=== PATIENT | female | born 2000 | race Caucasian/White ===

== ENCOUNTER 2024-12-02 00:19 | Inpatient (IN) ==
[2024-12-02] MEDS ORDERED: ACETAMINOPHEN 325 MG TAB PO PRN (01:23)
[2024-12-02] MEDS ORDERED: LIDOCAINE 1% LOCAL 20 ML VIAL INFIL PRN (01:23)
[2024-12-02] MEDS ORDERED: OXYTOCIN 30 UNITS/NSS 30 UNITS/500 ML BAG IV PRN ×2 (01:23→12:25)
[2024-12-02] MEDS ORDERED: CALCIUM CARBONATE 500 MG CHEWABLE TAB PO PRN (01:23)
--- NOTE | 2024-12-02 01:26 | History & Physical Report ---
Date of Service December 02, 2024 Assessment & Plan (1) Normal labor: Plan admit for rom and early labor. fetus category one, uncomplicated, gbs neg. Plan expectant management. pitocin if indicated. epidural on demand. fetus category one. anticipate . History of Present Illness Chief Complaint: rom and contractions Primary Care Provider: NO PCP Patient is a 24yowf with iup at 39 1/7 who noted gush of clear fluid at 10:40 this evening. Notes no vb. Contractions have started and noted to be every 6-8 minutes. and Delivery Plans Transfer into care at 24+ weeks Brother with tricuspid issue echo ~22-24 weeks 09/21/24 @ [facility] [place]--> WNL Initial OB Labs 05/08/24 Blood Type & RH A positive Antibody Screen negative HCT/HGB 40.8/13.4 Platelets 246 Hep C IgG 13yrs+ Old non reactive Pap Test Chlamydia not detected Gonorrhea not detected Rubella immune RPR non reactive Urine Culture/Screen mixed genital ryne isolated HBsAg non reactive HIV non reactive MCV Ultrasound gbs neg Allergies Allergy/AdvReac Type Severity Reaction Status Date / Time No Known Allergies Allergy Verified 11/29/24 11:48 Home Medications Medication Instructions Recorded Confirmed Type fluoxetine PO 08/22/24 11/29/24 History 21-iron fu-folic acid PO 08/22/24 11/29/24 History [ Complete] breast pump #1 ea 09/25/24 11/29/24 Rx famotidine [Pepcid] PO 11/29/24 11/29/24 History Patient History Medical History Anxiety Duct ectasia of breast Right breast Varicella vaccination Surgical History No history of previous surgery Family History Grandmother Breast cancer Denies family history of Ovarian cancer Colorectal cancer Social History Smoking Status: Never smoker Second Hand Exposure: No; Do You Dip or Chew Tobacco: No; Hx Alcohol Use: No Hx Substance Use: No Preferred Language: Turkmen Communication Ability: Effective Water Pollution Control Technician Required: No Beliefs That Will Affect Care: None marital status: marital status details: Robert Dwyer (29) [phone] Current Living Situation: Spouse Current Living Situation Comment: lives with spouse, dogs current occupational status: employed current occupation: [employer] Other Information That Helps Us Care for You: No Feels Safe at Home: Yes Safety Concerns: Feels Safe At This Time Assistive Devices: Glasses OB History g1--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 Results & Data Vital Signs (Past 12 Hours) Vital Signs Temp Pulse Resp BP 12/02/24 00:54 90 138/79 12/02/24 00:48 36.8 C 18 Coding Level of Care Code None Diagnoses Normal labor O80; Z37.9
[2024-12-02 02:11] LABS: Hematocrit (blood only) 33.7 % (37.0-47.0); Hemoglobin 11.5 g/dl (12.0-16.0); Mean Corpuscular Hemoglobin 31.3 pg (25.0-34.0); Mean Corpuscular Hgb Conc 34.1 g/dL (32.0-36.0); Mean Corpuscular Volume 91.6 fL (80.0-100.0); Mean Platelet Volume 10.5 fL (9.4-12.4); Platelet Count 258 K/uL (130-400); RDW Coefficient of Variation 12.4 % (11.5-14.5); RDW Standard Deviation 41.3 fL (36.4-46.3); Red Blood Count 3.68 M/uL (4.20-5.40); White Blood Count 8.98 K/ul (4.8-10.8)
--- NOTE | 2024-12-02 05:29 | Labor Progress Brief Note ---
Date of Service December 02, 2024 Subjective Resting in bed, notes stronger contractions. Assessment & Plan (1) Normal labor: Plan Discussed almost 7 hours since rom and no change. discussed continued expectant management vs. pitocin and she is ok with going with pitocin. Fetus reassuring. epidural on demand. Admission and Anticipated Discharge Date Admission Date: December 02, 2024 Physical Exam Physical Exam: cx--3/90/-2 efm--category one, intermittent monitoring Results & Data Vital Signs (Past 12 Hours) Vital Signs Temp Pulse Resp BP 12/02/24 04:25 20 12/02/24 04:25 36.6 C 20 12/02/24 04:24 65 108/70 12/02/24 02:30 36.7 C 12/02/24 00:54 90 138/79 12/02/24 00:48 36.8 C 18 Coding Level of Care Code None Diagnoses Normal labor O80; Z37.9
[2024-12-02] MEDS ORDERED: BUTORPHANOL TARTRATE 1 MG/ML VIAL IV STA (05:30)
[2024-12-02] MEDS: LACTATED RINGER'S 1,000 ML IV PRN (05:58)
[2024-12-02] MEDS: OXYTOCIN 30 UNITS/NSS 30 UNITS/500 ML BAG IV PRN (05:59)
--- NOTE | 2024-12-02 07:39 | Anesthesiology Consultation ---
Date of Service December 02, 2024 Assessment & Plan Chart Review Chart Review: Acceptable Risk for Surgery and Patient NOT seen in Pre Admission Testing Consults Requested none ASA ASA2 Proposed Anesthesia Anesthesia Type: Labor Epidural and CSE History Height/Weight Height: 5 ft 4 in Weight: 73.142 kg Allergies Allergy/AdvReac Type Severity Reaction Status Date / Time No Known Allergies Allergy Verified 11/29/24 11:48 Medications Home Medications Medication Instructions Recorded Confirmed Last Taken fluoxetine PO 08/22/24 11/29/24 Unknown 21-iron fu-folic acid PO 08/22/24 11/29/24 Unknown [ Complete] breast pump #1 ea 09/25/24 11/29/24 Unknown famotidine [Pepcid] PO 11/29/24 11/29/24 Unknown Active Medications Generic Name Dose Route Start Last Admin Trade Name Freq PRN Reason Stop Dose Admin Lactated Ringer's 1,000 mls @ 125 mls/hr 12/02/24 01:23 12/02/24 07:18 Lr IV 12/03/24 01:22 999 mls/hr .Q8H PRN Infusion L&D Protocol Protocol Oxytocin 30 units in 500 mls @ 4 mls/hr 12/02/24 05:27 12/02/24 07:05 Pitocin 30 Units/Nss IV 12/04/24 05:26 0.36 units/hr .Q24H PRN 6 mls/hr Labor Induction/Augmentation Titration Protocol 0.24 UNITS/HR Past Medical History Medical History Anxiety Duct ectasia of breast Right breast Varicella vaccination gerd anemia Exercise / Class Metabolic Activity II 4-5 Yardwork/Stairs/Walk up hill Past Family History Family History Grandmother Breast cancer Denies family history of Ovarian cancer Colorectal cancer Past Surgical History Surgical History No history of previous surgery Past Anesthesia History No Hx of Anesthesia Complications and No Family Hx of Anesthesia Complications History of PONV No Hx of PONV and No Hx of Motion Sickness Social History Smoking Status: Never smoker Do You Dip or Chew Tobacco: No Hx Alcohol Use: No Hx Substance Use: No Physical Exam Vital Signs Last Vital Signs Temp 36.6 C 12/02/24 04:25 Pulse 68 12/02/24 07:05 Resp 20 12/02/24 04:25 BP 117/68 12/02/24 07:05 Testing Laboratory Results 12/02/24 01:38
[2024-12-02] MEDS: LIDOCAINE 2%/EPINEPHRINE 1:200,000 20 ML PF ONE (08:35)
[2024-12-02] MEDS: fentaNYL citrate PF 100 MCG/2 ML VIAL ONE (08:35)
[2024-12-02] MEDS: BUPIVACAINE 0.25% PF 30 ML VIAL ONE (08:35)
[2024-12-02] MEDS ORDERED: NALBUPHINE HCL INJ 10 MG/ML AMP IV PRN (08:41)
[2024-12-02] MEDS ORDERED: NALOXONE HCL 0.4 MG/1 ML VIAL/CARP IV PRN (08:41)
[2024-12-02] MEDS ORDERED: diphenhydrAMINE 50 MG/ML VIAL IV PRN (08:41)
[2024-12-02] MEDS ORDERED: ONDANSETRON INJ 2 MG/ML 2 ML VIAL IV PRN (08:41)
[2024-12-02] MEDS ORDERED: SODIUM CHLORIDE 0.9% PF INJ 10 ML VIAL EPI PRN (08:41)
[2024-12-02] MEDS ORDERED: ePHEDrine sulfate 50 MG/ML AMP IV PRN (08:41)
[2024-12-02] MEDS ORDERED: PROMETHAZINE 6.25 MG/50.25 ML BAG IV PRN (08:41)
[2024-12-02] MEDS ORDERED: fentaNYL citrate PF 100 MCG/2 ML VIAL EPI PRN (08:41)
[2024-12-02] MEDS ORDERED: ROPIVACAINE 0.5% PF 5 MG/ML 20 ML VIAL EPI PRN (08:41)
[2024-12-02] MEDS ORDERED: NALOXONE HCL 1 MG in SODIUM CHLORIDE 0.9% 1,000 ML IV PRN (08:41)
[2024-12-02] MEDS ORDERED: fentANYL 2 MCG/ML BUPIVacaine 0.125%-NSS 100ML BAG EPI PRN (08:41)
[2024-12-02] MEDS ORDERED: LIDOCAINE 2% MPF LOCAL 5 ML VIAL EPI PRN (08:41)
[2024-12-02] MEDS ORDERED: BUPIVACAINE 0.25% PF 30 ML VIAL EPI PRN (08:41)
[2024-12-02] MEDS: fentANYL 2 MCG/ML BUPIVacaine 0.125%-NSS 100ML BAG ONE (08:42)
[2024-12-02] MEDS: ePHEDrine sulfate 50 MG/ML AMP ONE (09:38)
[2024-12-02] MEDS: SODIUM CHLORIDE 0.9% PF INJ 10 ML VIAL ONE (09:39)
[2024-12-02] MEDS: BUPIVACAINE 0.25% PF 30 ML VIAL EPI STA (09:40)
[2024-12-02] MEDS: fentaNYL citrate PF 100 MCG/2 ML VIAL EPI STA (09:40)
[2024-12-02] MEDS: LIDOCAINE 2%/EPINEPHRINE 1:200,000 20 ML PF EPI STA (09:40)
[2024-12-02] MEDS: SODIUM CHLORIDE 0.9% PF INJ 10 ML VIAL EPI STA (09:40)
--- NOTE | 2024-12-02 10:32 | Labor Progress Brief Note ---
Date of Service December 02, 2024 Subjective comfortable with epidural Assessment & Plan (1) Normal labor: Plan fetus category one, labor down, push n about an hour. anticipate . Admission and Anticipated Discharge Date Admission Date: December 02, 2024 Physical Exam Physical Exam: cx--ant lip/0 toco--q2min, pit at 8 efm--120s wtih mod varability, accels to 150s, occasional early Results & Data Vital Signs (Past 12 Hours) Vital Signs Temp Pulse Resp BP Pulse Ox 12/02/24 10:28 63 97 12/02/24 10:27 61 138/78 12/02/24 10:23 87 95 12/02/24 10:18 63 94 12/02/24 10:16 20 12/02/24 10:16 20 12/02/24 10:13 69 94 12/02/24 10:12 63 91/52 L 12/02/24 10:08 63 94 12/02/24 10:03 63 94 12/02/24 10:00 20 12/02/24 10:00 20 12/02/24 09:58 68 91/55 L 94 12/02/24 09:53 66 94 12/02/24 09:48 59 L 96 12/02/24 09:45 20 12/02/24 09:45 20 12/02/24 09:43 64 96 12/02/24 09:42 63 114/64 12/02/24 09:38 64 94 12/02/24 09:33 64 95 12/02/24 09:30 20 12/02/24 09:30 20 12/02/24 09:28 64 109/66 95 12/02/24 09:23 65 97 12/02/24 09:18 65 95 12/02/24 09:16 20 12/02/24 09:16 20 12/02/24 09:13 64 95 12/02/24 09:10 62 121/74 94 12/02/24 09:08 64 95 12/02/24 09:05 63 111/67 12/02/24 09:03 66 95 12/02/24 09:01 62 20 115/71 12/02/24 08:58 65 96 12/02/24 08:56 65 111/70 12/02/24 08:53 69 97 12/02/24 08:50 67 119/74 12/02/24 08:48 97 12/02/24 08:48 67 12/02/24 08:48 66 115/75 12/02/24 08:46 67 116/75 12/02/24 08:45 20 12/02/24 08:45 37.0 C 20 12/02/24 08:44 67 119/71 12/02/24 08:43 70 98 12/02/24 08:42 68 114/67 12/02/24 08:40 67 114/69 12/02/24 08:38 98 12/02/24 08:38 69 12/02/24 08:38 68 110/67 12/02/24 08:36 68 108/67 12/02/24 08:35 68 107/67 12/02/24 08:33 68 97 12/02/24 08:31 62 110/65 12/02/24 08:28 78 96 12/02/24 08:27 72 120/79 12/02/24 08:23 99 12/02/24 08:23 69 12/02/24 08:23 73 91 12/02/24 08:21 68 135/82 12/02/24 08:18 76 100 12/02/24 08:13 68 100 12/02/24 08:08 68 98 12/02/24 08:03 67 99 12/02/24 07:58 100 12/02/24 07:58 68 12/02/24 07:58 67 129/75 12/02/24 07:06 20 12/02/24 07:06 36.8 C 20 12/02/24 07:05 68 117/68 12/02/24 06:03 67 102/71 12/02/24 04:25 20 12/02/24 04:25 36.6 C 20 12/02/24 04:24 65 108/70 12/02/24 02:30 36.7 C 12/02/24 00:54 90 138/79 12/02/24 00:48 36.8 C 18 Coding Level of Care Code None Diagnoses Normal labor O80; Z37.9
--- NOTE | 2024-12-02 12:09 | Delivery Summary ---
Vaginal Delivery Summary Date of Service December 02, 2024 Vaginal Delivery Summary and 1st Degree LAC (right labial as well) Pre-operative Diagnosis: at 39 1/7 srom labor Post-operative Diagnosis: same Procedure: epidural pitocin augmentation right labial and first degree lacerations with repair QBL: 143cc Anesthesia: epidural Procedure: Lb presents to labor and delivery with srom. AFter seven hours, no cervical change and pitocin added. The patient progressed to c/c/+2. The patient pushed for less than 30 min to deliver a viable male in tariq position. The nose and mouth were bulb suctioned on the perineum and the rest o f the infant was then delivered without difficulty. The baby was vigorous. The nose and mouth were again bulb suctioned and the infant was placed in the maternal abdomen for drying and attention. Cord was clamped and cut at one minute of life. Cord blood and segment obtained. Placenta delivered spontaneous, intact with a three vessel cord. Cervix/sulci/rectum were intact. A first degree perineal laceration and right labial laceration were repaired in the normal standard fashion. Hemostasis obtained with dilute pitocin and fundal massage. Apgars were pending at time of note. Mother and baby doing well at the end of the delivery. [facility] Vaginal Delivery Charge Delivery Type Details: and 1st Degree LAC (right labial as well)
[2024-12-02] MEDS ORDERED: bisacodyL 10 MG SUPP PR PRN (12:25)
[2024-12-02] MEDS ORDERED: HYDROCORTISONE ACETATE 25 MG SUPP PR PRN (12:25)
[2024-12-02] MEDS ORDERED: oxyCODONE/ACETAMINOPHEN 5mg/325mg TAB PO PRN (12:25)
[2024-12-02] MEDS: DIPHTHER/TETAN/PERTUS Vaccine (Tdap, Adol/Adult) 0.5mL IM ONE (12:45)
--- NOTE | 2024-12-02 13:29 | Anesthesia Procedure Note ---
Date of Service December 02, 2024 Anesthesia Post Epidural Note Vital Signs Vital Signs: Temp Pulse Resp BP Pulse Ox 37.0 C 69 20 109/67 98 12/02/24 11:00 12/02/24 13:17 12/02/24 13:02 12/02/24 13:17 12/02/24 12:08 Notes Mental Status: alert / awake / arousable and participated in evaluation Nausea / Vomiting: adequately controlled Pain: adequately controlled Airway Patency, RR, SpO2: stable & adequate BP & HR: stable & adequate Hydration State: stable & adequate Neuraxial Anesthesia: was administered and sensory block is resolving Anesthetic Complications: no major complications apparent and Pt Satisfied with anesthetic care Epidural: Removed without complications and With tip intact
[2024-12-02] MEDS: BENZOCAINE 20% SPRY 85 APPLN/85 GM CAN EXT PRN (15:18)
[2024-12-02] MEDS: IBUPROFEN 600 MG TAB PO PRN (16:06)
[2024-12-02] MEDS: DOCUSATE SODIUM 100 MG CAP PO SCH (20:29)
[2024-12-02] MEDS: FLUoxetine HCL 20 MG CAP PO SCH (21:00)
[2024-12-02] MEDS: FAMOTIDINE 20 MG TAB PO ONE (21:29)
[2024-12-03 06:10] LABS: Hematocrit (blood only) 34.6 % (37.0-47.0); Hemoglobin 11.5 g/dl (12.0-16.0)
--- NOTE | 2024-12-03 06:24 | Obstetrical Progress Note ---
Date of Service December 03, 2024 Assessment & Plan (1) care and examination: Plan PPD#1 following at term. Stable. Rh+, gbs -, ri, vitals wnl Continue routine care, oob and ambulation, diet as tolerated Plan for DC: 12/04 Admission and Anticipated Discharge Date Admission Date: December 02, 2024 Supervising Physician Co-Signing Physician Notes Resident Physician Supervision Note: I interviewed and examined the patient. Discussed with Dr. Funez and agree with findings and plan as documented in the note. Any exceptions or clarifications are listed here: Doing well. Routine care. No concerns. Documented By: Chetna Saez MD, FACOG Subjective Patient is a 24 y/o female who is PPD#1 following at 39 weeks. Reports mild abd pain/cramping, well managed on analgesics Is voiding, eating, drinking, and ambulating normally Having appropriate lochia Planning for exclusive . Review of Systems Constitutional: no fever, no chills and no sweats Respiratory: no dyspnea Cardiovascular: no chest pain, no palpitations and no calf pain Gastrointestinal: no nausea and no vomiting Genitourinary: no dysuria Neurologic: no headache(s) Physical Exam Physical Exam: General: Alert, oriented. No acute distress. Cardiac: Regular rate and rhythm, no murmurs, rubs, or gallops. Respiratory: Clear to auscultation bilaterally. No increased work of breathing. Symmetrical chest rise. No respiratory distress. Abdomen: Soft, nontender, nondistended. Bowel sounds present. Uterus: Uterine fundus firm, nontender Lower extremities: No lower extremity edema or swelling. No deep calf pain. Results & Data Vital Signs (Past 12 Hours) Vital Signs Temp Pulse Resp BP Pulse Ox O2 Del Method 12/03/24 04:30 36.4 C L 63 16 124/82 100 Room Air 12/03/24 00:50 36.8 C 69 18 106/68 96 Room Air 12/02/24 20:20 36.7 C 64 18 108/56 L 98 Room Air Resident Activity Tracking Resident Involvement: Resident Care Provided Care Provided: Adult Hospital Medicine
[2024-12-03] MEDS: PRENATAL VITAMIN 1 TAB PO SCH (08:00)
[2024-12-03] MEDS: ACETAMINOPHEN 325 MG TAB PO PRN (08:00)
[2024-12-03] MEDS: FAMOTIDINE 20 MG TAB PO SCH (09:35)
[2024-12-03] MEDS: bisacodyL 5 MG TABEC PO SCH (20:19)
[2024-12-03 23:26] VITALS: O2SAT 98
--- NOTE | 2024-12-04 06:59 | Obstetrical Progress Note ---
Date of Service <Harsha Funez MD - Last Filed: 12/04/24 07:16> December 04, 2024 Assessment & Plan <Harsha Funez MD - Last Filed: 12/04/24 07:16> (1) care and examination: Plan PPD#2 following at term. Stable. Rh+, gbs -, ri, vitals wnl Continue routine care, oob and ambulation, diet as tolerated Plan for DC later today <Stacie Delgado MD, FACOG - Last Filed: 12/04/24 07:34> (1) care and examination: Day #:: 2 Subjective <Harsha Funez MD - Last Filed: 12/04/24 07:16> Patient is a 24 y/o female who is PPD#1 following at 39 weeks. Reports no significant pain Is voiding, eating, drinking, and ambulating normally Planning for exclusive . Constitutional: no fever, no chills or no sweats Respiratory: no dyspnea Cardiovascular: no chest pain, no palpitations or no calf pain Gastrointestinal: no nausea or no vomiting Genitourinary (female): no dysuria Neurologic: no headache(s) Physical Exam <Harsha Funez MD - Last Filed: 12/04/24 07:16> General: Alert, oriented. No acute distress. Cardiac: Regular rate and rhythm, no murmurs, rubs, or gallops. Respiratory: Clear to auscultation bilaterally. No increased work of breathing. Symmetrical chest rise. No respiratory distress. Abdomen: Soft, nontender, nondistended, palpable at level of umbilicus. Bowel sounds present. Uterus: Uterine fundus firm, nontender Lower extremities: No lower extremity edema or swelling. No deep calf pain. Results & Data <Harsha Funez MD - Last Filed: 12/04/24 07:16> Vital Signs (Past 12 Hours) Vital Signs Temp Pulse Resp BP Pulse Ox O2 Del Method 12/03/24 23:10 36.6 C 64 20 114/70 98 Room Air 12/03/24 19:35 Room Air 12/03/24 19:35 36.5 C 66 20 128/76 99 Room Air Supervising Physician <Stacie Delgado MD, FACOG - Last Filed: 12/04/24 07:34> Co-Signing Physician Notes Resident Physician Supervision Note: I was present with Dr. Funez during the history and exam. I discussed the case with the resident and agree with the findings and plan as documented in the note. Any exceptions or clarifications are listed here: stable doing well, ready to go home, abd soft ff 2 down nt, ext nt calves. ppd#2 s/p , dc home, instructions reviewed f/u 6 wk pp check. Documented By: Stacie Delgado MD, FACOG Resident Activity Tracking <Harsha Funze MD - Last Filed: 12/04/24 07:16> Resident Involvement: Resident Care Provided Care Provided: Adult Hospital Medicine
[2024-12-04 11:22] VITALS: BP 110/74; PULSE 74; RESP 16; TEMP 98.2
== END 2024-12-04 14:25 | disposition home or self-care (01) | DRG 807 ==
LOC: OPB 00:19 → 4S1 00:21 → 4E2 15:05